=== PATIENT | female | born 1975 | race Two or more races ===

== ENCOUNTER 2016-05-22 14:11 | Emergency (ER) | payer OTHER ==
[~2016-05-22] VITALS: Ht 170.2 cm; Wt 189.1 kg
[2016-05-22 17:14] VITALS: BP 133/77
== END 2016-05-22 17:45 | disposition home or self-care (01) ==
LOC: ER 14:29
DX: L03.116 Cellulitis of left lower limb (principal); E11.9 Type 2 diabetes mellitus without complications; I10 Essential (primary) hypertension
CPT/HCPCS: 93971

== ENCOUNTER 2018-05-26 13:09 | Inpatient (IN) | payer OTHER ==
[~2018-05-26] VITALS: Ht 167.6 cm; Wt 191.0 kg
[2018-05-26 13:59] LABS: Albumin 2.9 g/dL (3.4-5.0); Anion Gap 7 (5-15); Blood Urea Nitrogen 17 mg/dL (7-18); Calcium 8.2 mg/dL (8.5-10.1); Carbon Dioxide 25 mmol/L (21-32); Chloride 103 mmol/L (98-107); Glucose 118 mg/dL (74-106); Potassium 3.4 mmol/L (3.5-5.1); Sodium 135 mmol/L (136-145)
[2018-05-26 14:00] LABS: Basophils # (auto) 0 uL; Basophils % (auto) 0.2 % (0.0-2.0); Eosinophils # (auto) 0 uL; Hematocrit 37.7 % (36.0-46.0); Hemoglobin 12.3 g/dL (12.2-16.2); Lymphocytes # (auto) 1.2 uL; Lymphocytes % (auto) 5.8 % (10.0-50.0); Mean Corpuscular Hemoglobin 28.4 pg (28.0-32.0); Mean Corpuscular Hgb Conc. 32.6 g/dL (32.0-36.0); Mean Corpuscular Volume 86.9 fL (80.0-100.0); Monocytes # (auto) 0.7 uL; Monocytes % (auto) 3.4 % (0.0-12.0); Neutrophils # (auto) 18.8 uL; Neutrophils % (auto) 90.6 % (37.0-80.0); Platelet Count (auto) 230 10^3/uL (140-450); Red Blood Cells 4.34 10^6/uL (4.0-5.20); Red Cell Distribution Width 15.2 % (11.8-14.3); White Blood Cell 20.7 10^3/uL (4.4-10.8)
[2018-05-26 14:02] LABS: Alanine Aminotransferase 23 U/L (13-56); Alkaline Phosphatase 77 U/L (45-117); Aspartate Aminotransferase 33 U/L (15-37); BUN/Creatinine Ratio 16.3; Bilirubin, Total 0.4 mg/dL (0.2-1.0); Total Protein 8.3 g/dL (6.4-8.2)
[2018-05-26 14:03] LABS: GFR African American > 60 mL/min; GFR Non-African American > 60 mL/min
[2018-05-26] MEDS ORDERED: SODIUM CHLORIDE 0.9% 1,000 ML IVB ONE (17:18)
[2018-05-26] MEDS ORDERED: cefTRIAXone 1GM/50ML D5W 50 ML IV ONE (17:30)
[2018-05-26 18:00] LABS: INR 1.12 (0.9-1.15); Partial Thromboplastin Time 32.4 sec (23.78-33.04); Prothrombin Time 11.9 sec (9.27-12.13)
[2018-05-26] MEDS ORDERED: HYDROcodone-ACET 5/325MG TAB PO PRN (20:30)
[2018-05-26] MEDS ORDERED: DOCUSATE SOD 100 MG CAP PO PRN (20:30)
[2018-05-26] MEDS ORDERED: ACETAMINOPHEN 325 MG TAB PO PRN (20:30)
[2018-05-26] MEDS ORDERED: ONDANSETRON HCL 4 MG/2 ML VIAL IV PRN (20:30)
[2018-05-26] MEDS ORDERED: POTASSIUM CHL 20 Meq TABLET PO ONE (20:30)
[2018-05-26] MEDS ORDERED: DEXTROSE (50%) 50ML SYRG IV PRN (20:30)
[2018-05-26] MEDS ORDERED: TEMAZEPAM 15 MG CAP PO PRN (20:30)
[2018-05-26 21:35] VITALS: BP 135/71
--- NOTE | 2018-05-26 21:35 | NUR ---
MS admit from ER FRANDY COLBY admitted to tele/MS after SBAR received. Patient oriented to LONI VILLALPANDO, primary RN, unit, room, bed, and unit policies regarding patient care and visiting hours. Patient weighed by bedscale and encouraged to call if they need something. All questions and concerns addressed, patient verbalized understanding. Note:
[2018-05-26 22:00] VITALS: BP 135/71
[2018-05-26] MEDS: CLINDAMYCIN 600MG IV 50 ML IV SCH (22:42)
[2018-05-26] MEDS: FAMOTIDINE 20 MG TAB PO SCH (22:42)
[2018-05-27] MEDS: ACCU-CHEK COMFORT CURVE STRIP VI SCH ×4 (00:29→17:35)
[2018-05-27 05:00] VITALS: BP 131/77
[2018-05-27] MEDS: CLINDAMYCIN 600MG IV 50 ML IV SCH ×3 (05:44→21:27)
[2018-05-27] MEDS: InsuLIN REG 1unit/0.01ml Soln (100units/ml) SC SCH ×4 (05:48→17:36)
--- NOTE | 2018-05-27 05:49 | NUR ---
PATIENT DENIES HX OF DIABETES, HOWEVER, GLUCOSE CHECKS ARE SCHEDULED FOR Q6 HR. PREVIOUS 2 ACCUCHECKS WERE 116 AND 129.
[2018-05-27 06:12] LABS: Basophils # (auto) 0 uL; Basophils % (auto) 0.3 % (0.0-2.0); Eosinophils # (auto) 0 uL; Eosinophils % (auto) 0.4 % (0.0-7.0); Hematocrit 35.6 % (36.0-46.0); Hemoglobin 11.4 g/dL (12.2-16.2); Lymphocytes # (auto) 1.1 uL; Lymphocytes % (auto) 8.9 % (10.0-50.0); Mean Corpuscular Volume 87.4 fL (80.0-100.0); Monocytes # (auto) 0.7 uL; Monocytes % (auto) 5.8 % (0.0-12.0); Neutrophils # (auto) 10.6 uL; Neutrophils % (auto) 84.6 % (37.0-80.0); Platelet Count (auto) 179 10^3/uL (140-450); Red Blood Cells 4.07 10^6/uL (4.0-5.20); White Blood Cell 12.6 10^3/uL (4.4-10.8)
--- NOTE | 2018-05-27 06:46 | NUR ---
SHIFT END PT RESTING IN BED. NO S/S OF DISTRESS NOTED. BED IN LOWEST LOCKED POSITION W/CALL LIGHT W/IN REACH. ENDORSING CARE TO DAY SHIFT RN.
--- NOTE | 2018-05-27 08:30 | NUR ---
Opening Shift Note Assumed care of patient, awake and alert. No S/S of distress/SOB or pain. Instructed on POC and to call for assist PRN, will continue to monitor for changes Q1hr and PRN. Bed is in the lowest position and call light within reach
[2018-05-27 09:00] VITALS: BP 121/61
[2018-05-27] MEDS ORDERED: cefTRIAXone 1GM/50ML D5W 50 ML IV SCH (09:00)
[2018-05-27] MEDS: ENOXAPARIN SOD 40 MG/0.4 ML SYRINGE SC SCH (09:35)
[2018-05-27] MEDS: FAMOTIDINE 20 MG TAB PO SCH ×2 (09:35→21:27)
[2018-05-27] MEDS ORDERED: INFLUENZA QUAD 2018-2019 0.5 ML SYRG IM SCH (10:00)
[2018-05-27 13:00] VITALS: BP 116/77
[2018-05-27 17:33] VITALS: BP 116/67
[2018-05-27 19:53] LABS: Basophils # (auto) 0 uL; Basophils % (auto) 0.3 % (0.0-2.0); Eosinophils # (auto) 0.1 uL; Hematocrit 34.4 % (36.0-46.0); Hemoglobin 11.2 g/dL (12.2-16.2); Lymphocytes # (auto) 1.6 uL; Lymphocytes % (auto) 14.5 % (10.0-50.0); Mean Corpuscular Hemoglobin 28.5 pg (28.0-32.0); Mean Corpuscular Hgb Conc. 32.4 g/dL (32.0-36.0); Monocytes # (auto) 0.9 uL; Monocytes % (auto) 8.4 % (0.0-12.0); Neutrophils # (auto) 8.1 uL; Neutrophils % (auto) 75.8 % (37.0-80.0); Platelet Count (auto) 204 10^3/uL (140-450); Red Blood Cells 3.91 10^6/uL (4.0-5.20); Red Cell Distribution Width 15.1 % (11.8-14.3); White Blood Cell 10.7 10^3/uL (4.4-10.8)
[2018-05-27 22:00] VITALS: BP 128/73
[2018-05-28 05:00] VITALS: BP 130/68
[2018-05-28] MEDS: CLINDAMYCIN 600MG IV 50 ML IV SCH ×2 (06:49→14:01)
--- NOTE | 2018-05-28 07:36 | NUR ---
CARE ENDORSED TO DAY RN AFTER SBAR GIVEN. PATIENT RESTING IN BED NO DISTRESS NOTED.
[2018-05-28 09:00] VITALS: BP 116/72
[2018-05-28] MEDS: ENOXAPARIN SOD 40 MG/0.4 ML SYRINGE SC SCH (10:11)
[2018-05-28] MEDS: FAMOTIDINE 20 MG TAB PO SCH ×2 (10:11→21:42)
[2018-05-28] MEDS: CEFTRIAXONE SODIUM 2 GM in D5W 5% 50 ML IV SCH (10:37)
[2018-05-28 13:00] VITALS: BP 139/79
--- NOTE | 2018-05-28 15:00 | NUR ---
LAB LAB CALLED TO SAY BLOOD CULTURES WERE POSITIVE FOR GRAM POSITIVE COCCI IN [place]. NOTIFIED THE RN RAHUL AND CALLED DR. RAZO REGARDING THE RESULTS AND HE IS NOW AWARE.
[2018-05-28] MEDS ORDERED: VANCOMYCIN PER PHARMACY 0 MG IV SCH (16:00)
--- NOTE | 2018-05-28 16:01 | NUR ---
real estate operations manager prepared foods production team member page Received a call from Niya from [facility]. Niya states that their company was not informed in a timely manner regarding patient's admission. Niya would like to talk to casey saw operator. real estate operations manager extension given to Niya and casey saw operator paged regarding situation. Will continue to monitor.
[2018-05-28 17:28] VITALS: BP 118/65
--- NOTE | 2018-05-28 18:05 | NUR ---
Spoke to Heath from [facility] Heath asked when patient is being discharged. Heath informed that patient is not discharged at this time
[2018-05-28 18:37] LABS: Basophils # (auto) 0 uL; Basophils % (auto) 0.6 % (0.0-2.0); Eosinophils # (auto) 0.2 uL; Eosinophils % (auto) 2.3 % (0.0-7.0); Hematocrit 35.2 % (36.0-46.0); Hemoglobin 11.5 g/dL (12.2-16.2); Lymphocytes % (auto) 24.5 % (10.0-50.0); Mean Corpuscular Hemoglobin 28.5 pg (28.0-32.0); Mean Corpuscular Hgb Conc. 32.8 g/dL (32.0-36.0); Mean Corpuscular Volume 86.7 fL (80.0-100.0); Monocytes # (auto) 0.6 uL; Monocytes % (auto) 7.7 % (0.0-12.0); Neutrophils # (auto) 5.2 uL; Neutrophils % (auto) 64.9 % (37.0-80.0); Nucleated Red Blood Cells % 0.1 %; Platelet Count (auto) 217 10^3/uL (140-450); Red Blood Cells 4.06 10^6/uL (4.0-5.20)
[2018-05-28 18:42] LABS: Anion Gap 6 (5-15); Blood Urea Nitrogen 12 mg/dL (7-18); Calcium 8.2 mg/dL (8.5-10.1); Carbon Dioxide 27 mmol/L (21-32); Chloride 102 mmol/L (98-107); Glucose 89 mg/dL (74-106); Potassium 3.3 mmol/L (3.5-5.1); Sodium 135 mmol/L (136-145)
[2018-05-28 18:44] LABS: BUN/Creatinine Ratio 16.7; GFR African American > 60 mL/min; GFR Non-African American > 60 mL/min
[2018-05-28] MEDS: VANCOMYCIN 1,500 MG in D5W 5% 250 ML IV SCH (20:40)
--- NOTE | 2018-05-28 20:40 | NUR ---
IV removal TO RIGHT FOREARM DUE TO LEAKING IV DC'd with clean sterile technique, catheter fully intact. Pressure dressing applied to site. Patient tolerated well.
--- NOTE | 2018-05-28 21:00 | NUR ---
IV insertion IV access obtained, via clean sterile technique by inserting 22 gauge catheter at RIGHT HAND after 1 attempt(s). IV secured properly. No trauma to site. Patient tolerated well.
--- NOTE | 2018-05-28 21:40 | NUR ---
SPOKE WITH "SONY" FROM [employer] [facility] PER SONY, PATIENT HAS BEEN ACCEPTING TO [facility]. PATIENT INSURANCE DOES NOT COVER THIS HOSPITAL STAY, PT TO BE TRANSFERRED OUT. SONY SPOKE WITH RECREATIONAL SPORTS DIRECTOR KAREN TO UPDATE ON SITUATION WILL UPDATE PATIENT
[2018-05-28 21:42] VITALS: BP 123/73
--- NOTE | 2018-05-28 21:50 | NUR ---
PROFESSOR OF KINESIOLOGY KAREN AT BEDSIDE EXPLAINING SITUATION TO PATIENT PT AGREES TO TRANSFER TO [facility] TO BE IN NETWORK WITH HER INSURANCE
[2018-05-28] MEDS ORDERED: VANCOMYCIN 1GM/250ML 250 ML IV SCH (22:00)
--- NOTE | 2018-05-28 22:00 | NUR ---
CALLED "SONY" FROM [facility] AT [phone] UPDATED SONY THAT PATIENT DOES NOT HAVE A DISCHARGE ORDER IN PLACE FOR TRANSFER, THIS MORNING WAS NOT MADE AWARE OF INSURANCE ISSUE. PER SONY, "WE CAN'T TAKE HER WITHOUT THE DOCTOR'S DISCHARGE ORDER. I WILL LET MY HARDWOOD FALLER KNOW AND CALL YOU BACK" NO ORDER FOR DISCHARGE FOR PATIENT TO BE TRANSFERRED OUT, PAINTER APPRENTICE MADE AWARE, PATIENT MADE AWARE. PENDING CALL BACK FROM "SONY"
[2018-05-29] MEDS: VANCOMYCIN 1,500 MG in D5W 5% 250 ML IV SCH ×3 (04:21→19:54)
[2018-05-29 05:02] VITALS: BP 115/73
--- NOTE | 2018-05-29 07:12 | NUR ---
CLOSING NOTE REPORT ENDORSED TO DAY SHIFT RN PATIENT IS SLEEPING. NO S/S OF DISTRESS NOTED CALL LIGHT WITHIN REACH
--- NOTE | 2018-05-29 08:00 | NUR ---
OPENING NOTE ASSUMED CARE OF PT AWAKE AND ALERT. NO S/S OF DISTRESS NOTED OR COMPLAINTS OF PAIN. PUT UPDATED ON POC AND ALL QUESTIONS ANSWERED. BED IS IN LOWEST, LOCKED POSITION WITH SIDE RAILS UP X2 AND CALL LIGHT WITHIN REACH. WILL CONTINUE TO MONITOR Q1H AND PRN.
[2018-05-29 09:00] VITALS: BP 133/76
[2018-05-29] MEDS: CEFTRIAXONE SODIUM 2 GM in D5W 5% 50 ML IV SCH (09:42)
[2018-05-29] MEDS: FAMOTIDINE 20 MG TAB PO SCH ×2 (09:42→21:37)
[2018-05-29] MEDS: ENOXAPARIN SOD 40 MG/0.4 ML SYRINGE SC SCH (09:42)
--- NOTE | 2018-05-29 10:30 | NUR ---
INSURANCE REQUEST RECEIVED PHONE CALL FROM GINNY AT [facility]. GINNY INQUIRING TO WHETHER OR NOT PT IS TO BE DC'D TODAY, IF NOT, STATING PATIENT TO BE TRANSFERRED TO OUTSIDE FACILITY. STATING SHE WILL CALL BACK AT LATER TIME FOR UPDATE.
--- NOTE | 2018-05-29 10:46 | NUR ---
SPOKE TO MD SPOKE TO DR. RAZO REGARDING INSURANCE REQUEST OF TRANSFER. MD AWARE. NO ORDERS RECEIVED AT THIS TIME.
--- NOTE | 2018-05-29 12:15 | NUR ---
SPOKE TO SPOKE TO DR. RAZO RE: K+ 3.3. MD AWARE. NO ORDERS RECEIVED AT THIS TIME.
[2018-05-29 13:00] VITALS: BP 135/67
--- NOTE | 2018-05-29 14:20 | NUR ---
[facility] MESSAGE LEFT FOR SONY AT [facility]CP INFORMING OF DISCHARGE AND TRANSFER ORDER. WAITING RACEHORSE TRAINER BACK.
--- NOTE | 2018-05-29 15:10 | NUR ---
TRANSFER MESSAGE LEFT FOR FRANYD. FRANDY RETURNED CALL. INFORMED FRANDY THAT THERE IS NOW A DC AND ORDER TO TRANSFER PT TO ACUTE CARE FACILITY. FRANDY STATING SHE WILL CONTACT [facility] AND CALL ME BACK WITH UPDATE.
--- NOTE | 2018-05-29 15:18 | NUR ---
TRANSFER RECEIVED PHONE CALL FROM [facility]. WISE STATING THAT OF NOW TO 'HOLD TIGHT'. PER FRANDY, [facility] WILL CONTACT PRIMARY NURSE REGARDING TRANSFER STATUS AT A LATER TIME. PT INFORMED.
--- NOTE | 2018-05-29 15:58 | NUR ---
TRANSFER RECEIVED PHONE CALL FROM DR. RAZO, STATING THAT HE SPOKE TO [facility]. STATING THAT ORIGINALLY, THEY WERE SUGGESTING PT BE TRANSFERRED TO SNF, BUT OF NOW PT TO BE TRANSFERRED TO ACUTE HOSPITAL FOR 24 HOURS AND THEN POSSIBLE SNF PLACEMENT FOR ABX. CONTACT # provided . CALLED [facility], SPOKE TO GINNY. GINNY STATING THAT SHE WILL SPEAK TO HER PHYSICIAN BECAUSE FAR SHE KNEW, PT WAS GOING TO BE TRANSFERRED TO SNF FOR FURTHER CARE. GINNY STATING SHE WILL CONTACT PRIMARY NURSE AFTER SPEAKING TO PHYSICIAN.
--- NOTE | 2018-05-29 16:24 | NUR ---
TRANSFER RECEIVED PHONE CALL FROM DR. DUNG MD STATING THAT AFTER SPEAKING TO [facility], PT NO TO BE TRANSFERRED TO SNF. REQUESTING GINNY BE CONTACTED AGAIN FOR FURTHER UPDATE. CALLED GINNY GROSS STATING TAHT SHE HAS SENT OUT INFORMATION, BUT NO BED IS AVAILABLE OF NOW. GINNY STATING SHE WILL INFORM PRIMARY RN WHEN BED IS AVAILABLE. PT/FAMILY MADE AWARE.
[2018-05-29 17:00] VITALS: BP 135/63
--- NOTE | 2018-05-29 19:00 | NUR ---
Opening Shift Note Assumed care of the patient from the day shift RN. The patient is A&Ox4, no signs or symptoms of distress. Educated the patient on POC and patient verbalized understanding. The patient's call light is within reach and bed is in the lowest, locked position. Will round hourly and continue to monitor.
[2018-05-29 20:00] VITALS: BP 118/66
[2018-05-29 21:59] VITALS: BP 118/66
[2018-05-30] MEDS: VANCOMYCIN 1,500 MG in D5W 5% 250 ML IV SCH ×3 (04:07→20:04)
[2018-05-30 04:50] VITALS: BP 131/74
[2018-05-30 05:29] LABS: Basophils # (auto) 0 uL; Basophils % (auto) 0.5 % (0.0-2.0); Eosinophils # (auto) 0.3 uL; Eosinophils % (auto) 4.7 % (0.0-7.0); Hematocrit 35.9 % (36.0-46.0); Hemoglobin 11.3 g/dL (12.2-16.2); Lymphocytes # (auto) 1.5 uL; Lymphocytes % (auto) 24.9 % (10.0-50.0); Mean Corpuscular Hemoglobin 28.4 pg (28.0-32.0); Mean Corpuscular Hgb Conc. 31.6 g/dL (32.0-36.0); Mean Corpuscular Volume 89.7 fL (80.0-100.0); Monocytes # (auto) 0.6 uL; Monocytes % (auto) 9.7 % (0.0-12.0); Neutrophils # (auto) 3.7 uL; Neutrophils % (auto) 60.2 % (37.0-80.0); Nucleated Red Blood Cells % 0.2 %; Platelet Count (auto) 203 10^3/uL (140-450); White Blood Cell 6.2 10^3/uL (4.4-10.8)
[2018-05-30 07:46] LABS: Alanine Aminotransferase 22 U/L (13-56); Albumin 2.3 g/dL (3.4-5.0); Anion Gap 7 (5-15); Aspartate Aminotransferase 26 U/L (15-37); BUN/Creatinine Ratio 12.7; Blood Urea Nitrogen 8 mg/dL (7-18); Calcium 7.9 mg/dL (8.5-10.1); Carbon Dioxide 25 mmol/L (21-32); Chloride 104 mmol/L (98-107); GFR African American > 60 mL/min; GFR Non-African American > 60 mL/min; Glucose 108 mg/dL (74-106); Potassium 3.7 mmol/L (3.5-5.1); Sodium 136 mmol/L (136-145)
[2018-05-30 07:49] LABS: Alkaline Phosphatase 61 U/L (45-117); Bilirubin, Total 0.3 mg/dL (0.2-1.0); Total Protein 7.4 g/dL (6.4-8.2)
[2018-05-30 09:00] VITALS: BP 127/72
[2018-05-30] MEDS: CEFTRIAXONE SODIUM 2 GM in D5W 5% 50 ML IV SCH (10:30)
[2018-05-30] MEDS: FAMOTIDINE 20 MG TAB PO SCH ×2 (10:30→22:02)
[2018-05-30] MEDS: ENOXAPARIN SOD 40 MG/0.4 ML SYRINGE SC SCH (10:31)
[2018-05-30 13:00] VITALS: BP 135/66
--- NOTE | 2018-05-30 13:08 | NUR ---
GINNY CALLED AND SAID SHE HAS A BED FOR THE PATIENT AT [facility] IN [place]. PAGED DR RAZO TO ASK HOW LONG THE PATIENT NEEDS THE IV ANTIBIOTICS. NOTIFIED PATIENT ABOUT BED IN [place].
[2018-05-30 17:00] VITALS: BP 124/66
--- NOTE | 2018-05-30 18:23 | NUR ---
HARINDER CALLED FROM [facility] AND SAID THEY WILL HAVE A BED TOMORROW BETWEEN 11-[address] [facility] ROOM [address] BED C CALL REPRT TOMORROW TO [phone]. PATIENT INFORMED AND VERBALIZED UNDERSTANDING
[2018-05-30 20:00] VITALS: BP 112/54
[2018-05-30 22:00] VITALS: BP 130/71
[2018-05-31] MEDS: VANCOMYCIN 1,500 MG in D5W 5% 250 ML IV SCH ×2 (03:53→13:35)
[2018-05-31 05:00] VITALS: BP 116/71
[2018-05-31 08:00] VITALS: BP 112/54
[2018-05-31 09:00] VITALS: BP 133/75
[2018-05-31] MEDS: CEFTRIAXONE SODIUM 2 GM in D5W 5% 50 ML IV SCH (09:50)
[2018-05-31] MEDS: FAMOTIDINE 20 MG TAB PO SCH (09:50)
[2018-05-31] MEDS: ENOXAPARIN SOD 40 MG/0.4 ML SYRINGE SC SCH (09:51)
[2018-05-31 13:00] VITALS: BP 140/75
--- NOTE | 2018-05-31 15:22 | NUR ---
CALLED FARHAN RAMACHANDRAN SPOKE TO TRISH TO SEE IF BARIATRIC BED HAS BEEN DELIVERED. SHE SAID BED HAS NOT BEEN DELIVERED YET AND SHE WILL CALL ME ONCE BED HAD BEEN DELIVERED TO FACILITY.
[2018-05-31 17:09] VITALS: BP 128/93
--- NOTE | 2018-05-31 19:02 | NUR ---
REPORT GIVEN TO LULI BURNS AT [facility] [phone] REPORT GIVEN [facility] [id number]
--- NOTE | 2018-06-01 07:53 | NUR ---
o/ note 05-29-18 Amelia from [facility] called to see if pt to be d/c today. She wanted to talk to md and if not able to talk to md, possibility of stay being denied. I gave Amelia doctors line phone #. RM did not know if pt was going to be d/c since Cooper Osuna has not seen pt yet. 150 I callellen Cisneros back and finformed and she stated she had talked to Dr Gamboa but needed to talk with him again
== END 2018-05-31 19:30 | DRG 603 ==
LOC: ER 13:09 → OVERFLOW 20:27 → WEST WING 21:35
PROVIDERS: ADMIT Nurse Practitioner; ATTEND Internal Medicine Pulmonary Disease
DX: L03.116 Cellulitis of left lower limb (principal); Z68.44 Body mass index [BMI] 60.0-69.9, adult; E11.9 Type 2 diabetes mellitus without complications; E66.01 Morbid (severe) obesity due to excess calories; I10 Essential (primary) hypertension; M17.11 Unilateral primary osteoarthritis, right knee; Z82.49 Family history of ischemic heart disease and other diseases of the circulatory system
CPT/HCPCS: 36415; 71045; 73700; 80048; 80053; 80202; 82962; 83605; 83735; 83880; 84702; 85025; 85610; 85652; 85730; 86141; 87040; 93971; 94761; 96365; A6257; G0378; J0696; J3490; J7060

== ENCOUNTER 2021-02-11 05:09 | Emergency (ER) | payer MEDICAID, OTHER ==
[~2021-02-11] VITALS: Ht 165.1 cm; Wt 172.4 kg
[2021-02-11 06:49] LABS: Basophils # (auto) 0.1 10 ^3/uL (0-0.2); Basophils % (auto) 0.5 % (0.0-2.0); Eosinophils # (auto) 0.2 10 ^3/uL (0-0.8); Eosinophils % (auto) 2.1 % (0.0-7.0); Hematocrit 42.7 % (36.0-46.0); Hemoglobin 14.3 g/dL (12.2-16.2); Lymphocytes # (auto) 2.2 10 ^3/uL (0.4-5.4); Lymphocytes % (auto) 21.7 % (10.0-50.0); Mean Corpuscular Hemoglobin 29.6 pg (28.0-32.0); Mean Corpuscular Hgb Conc. 33.4 g/dL (32.0-36.0); Mean Corpuscular Volume 88.5 fL (80.0-100.0); Monocytes # (auto) 0.6 10 ^3/uL (0-1.3); Monocytes % (auto) 5.6 % (0.0-12.0); Neutrophils % (auto) 70.1 % (37.0-80.0); Red Blood Cells 4.83 10^6/uL (4.0-5.20); Red Cell Distribution Width 13.5 % (11.8-14.3)
[2021-02-11 07:03] LABS: Alanine Aminotransferase 60 U/L (13-56); Anion Gap 4 (5-15); Blood Urea Nitrogen 10 mg/dL (7-18); Calcium 8.7 mg/dL (8.5-10.1); Carbon Dioxide 28 mmol/L (21-32); Chloride 101 mmol/L (98-107); Glucose 267 mg/dL (74-106); Magnesium 2.2 mg/dL (1.6-2.6); Sodium 133 mmol/L (136-145)
[2021-02-11 07:09] LABS: Alkaline Phosphatase 114 U/L (45-117); Aspartate Aminotransferase 35 U/L (15-37); BUN/Creatinine Ratio 13.3; Bilirubin, Total 0.4 mg/dL (0.2-1.0); GFR African American 106 mL/min; GFR Non-African American 88 mL/min; Total Protein 8.3 g/dL (6.4-8.2)
[2021-02-11] MEDS ORDERED: ASPirin 81 mg TAB PO ONE (07:30)
[2021-02-11 08:00] VITALS: BP 152/88
[2021-02-11 08:55] LABS: Urine Bacteria NONE SEEN /hpf (None Seen); Urine Blood Negative /uL (Negative); Urine Hyaline Cast MOD /lpf (0 - 2); Urine Mucus FEW (None Seen); Urine Specific Gravity 1.026 (1.001-1.035); Urine WBC 2 /hpf (0 - 5)
== END 2021-02-11 09:40 | disposition home or self-care (01) ==
LOC: ER 05:09
DX: R07.89 Other chest pain (principal); R73.9 Hyperglycemia, unspecified; E44.1 Mild protein-calorie malnutrition; Z68.44 Body mass index [BMI] 60.0-69.9, adult; Z90.49 Acquired absence of other specified parts of digestive tract; Z98.890 Other specified postprocedural states
CPT/HCPCS: 36415; 71045; 80053; 81001; 83735; 83880; 84443; 84484; 85025; 93005